=== PATIENT | female | born 1970 | race Caucasian/White ===

== ENCOUNTER 2017-10-17 21:41 | Emergency (ER) | payer OTHER ==
[~2017-10-17] VITALS: Ht 162.6 cm; Wt 111.4 kg
[2017-10-17 21:47] VITALS: TEMP 36.9; Ht 162.6 cm; Wt 111.4 kg
[2017-10-17] MEDS ORDERED: METOCLOPRAMIDE HCL INJ 5 MG/ML 2 ML VIAL IV STA (22:02)
[2017-10-17] MEDS ORDERED: DiphenhydrAMINE HCL 50 MG/ML VIAL IV STA (22:02)
[2017-10-17 22:36] LABS: URINE APPEARANCE CLEAR (CLEAR); URINE BILIRUBIN NEG (NEG); URINE COLOR YELLOW; URINE NITRITE NEG (NEG); UROBILINOGEN NEG (NEG); ZZUR CULT IF INDIC CLEAN CATCH NO
--- NOTE | 2017-10-17 22:37 | DIAGNOSTIC IMAGING REPORT ---
CHEST ONE VIEW PORTABLE CLINICAL HISTORY: Chest pain. COMPARISON STUDY: No previous studies for comparison. FINDINGS: Lung volumes are normal. No consolidation is identified and there is no evidence of pulmonary edema. Cardiomediastinal silhouette is normal. There is no pneumothorax or pleural effusion. IMPRESSION: No acute cardiopulmonary findings. Electronically signed by: Honorio Layton M.D. 10/17/2017 10:36 PM Dictated Date/Time: 10/17/2017 10:35 PM
[2017-10-17 22:38] LABS: MANUAL MICROSCOPIC REQUIRED? NO; REVIEW REQ? NO
[2017-10-17] MEDS ORDERED: EFF75 PO (22:45)
[2017-10-17] MEDS ORDERED: CZR25 PO (22:45)
[2017-10-17] MEDS ORDERED: ALBU18002 PO (22:45)
[2017-10-17] MEDS ORDERED: SYMIN/8045 INH (22:45)
[2017-10-17 22:57] LABS: POINT OF CARE TROPONIN I < 0.030 ng/ml (0-0.045)
[2017-10-17 22:57] LABS: BASO % 0.4 %; BASO ABS # 0.04 K/uL (0-0.2); COMPLETE YES; EOS % 4.2 %; IG% 0.1 %; LYMPH % 32.9 %; LYMPH ABS # 2.95 K/uL (1.2-3.4); MEAN CORPUSCULAR HEMOGLOBIN 29.3 pg (25-34); MEAN CORPUSCULAR HGB CONC 33.8 g/dl (32-36); MONO % 8.1 %; NEUT % 54.3 %; PLATELET COUNT 301 K/uL (130-400); WHITE BLOOD COUNT 8.98 K/uL (4.8-10.8)
[2017-10-17 23:09] LABS: ALT/SGPT 22 U/L (12-78); AST/SGOT 12 U/L (15-37); BLOOD UREA NITROGEN 12 mg/dl (7-18); BUN/CREATININE RATIO 16.3 (10-20); CALCIUM 9.1 mg/dl (8.5-10.1); CARBON DIOXIDE 27 mmol/L (21-32); CHLORIDE 103 mmol/L (98-107); CREATININE 0.76 mg/dl (0.60-1.20); GLUCOSE 106 mg/dl (70-99); POTASSIUM 3.8 mmol/L (3.5-5.1); SODIUM 136 mmol/L (136-145)
[2017-10-17 23:20] LABS: ALKALINE PHOSPHATASE 110 U/L (45-117)
[2017-10-17] MEDS ORDERED: LORAZEPAM 2 MG/ML 1 ML VIAL IV STA (23:50)
[2017-10-18 01:01] VITALS: BP 147/76
[2017-10-18 01:15] VITALS: PULSE 85; O2SAT 94
--- NOTE | 2017-10-18 01:51 | EMERGENCY ROOM VISIT NOTE ---
History First contact with patient: 21:52 Chief Complaint: OTHER COMPLAINT Stated Complaint: HEADACHE, LEG PAIN, DIZZY, SOB History of Present Illness The patient is a 47 year old female who presents to the Emergency Room with complaints of high blood pressure, lightheadedness, chest pain, dyspnea, leg cramping, headache for the past day. 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 Patient recently started losartan yesterday. Patient did not take blood pressure medication in the past and she did not believe she had high blood pressure. Patient slept for a few hours today and then got up and felt lightheaded and then developed all these other symptoms. She checked her blood pressure and noticed it was high. She got more concerned and came here. Patient denies fevers, cough, abdominal pain, vomiting, diarrhea, cold symptoms, recent travel, tobacco abuse. No prior heart disease. No history of blood clots. Review of Systems See HPI for pertinent positives & negatives. A total of 10 systems reviewed and were otherwise negative. Past Medical/Surgical History Hypertension, depression Social History Smoking Status: Former Smoker Smokeless Tobacco Use: No Alcohol Use: occasionally Drug Use: none Occupation Status: employed Current/Historical Medications Scheduled Budesonide/Formoterol Fumarate (Symbicort 80/4.5 Inhaler), 2 PUFFS INH BID Losartan Potassium (Losartan Potassium), 25 MG PO DAILY Venlafaxine Hcl (Effexor), 75 MG PO QAM Scheduled PRN Albuterol Sulfate (Proair Respiclick), 1 PUFF PO DAILY PRN for PRN Physical Exam Vital Signs Date Time Temp Pulse Resp B/P (MAP) Pulse Ox O2 Delivery O2 Flow Rate FiO2 10/18/17 01:15 85 23 94 10/18/17 01:01 147/76 10/18/17 01:00 84 26 93 10/18/17 00:45 84 18 95 10/18/17 00:31 164/75 10/18/17 00:30 76 18 93 Room Air 10/18/17 00:25 168/81 10/17/17 23:50 156/72 10/17/17 22:56 Room Air 10/17/17 22:56 80 10/17/17 21:47 36.9 71 18 214/96 94 Room Air Physical Exam VITALS: Vitals are noted on the nurse's note and reviewed by myself. Vital signs hypertensive GENERAL: Anxious appearing female, in no acute distress, nondiaphoretic, well- developed well-nourished. SKIN: The skin was without rashes, erythema, edema, or bruising. There is no tenting of the skin. Capillary reflex less than 2 seconds. HEAD: Normocephalic atraumatic. EARS: External auditory canals clear, tympanic membranes pearly singer without erythema or effusion bilaterally. EYES: Pupils equal round and reactive to light and accommodation. Conjunctivae without injection, sclerae without icterus. Extraocular movements intact. NOSE: Patent, turbinates without inflammation or discharge. MOUTH: Mucous membranes moist. Pharynx without erythema or exudate. Uvula midline. Airway patent. Tongue does not deviate. NECK: Supple without nuchal rigidity. No lymphadenopathy. No thyromegaly. Cervical spine is nontender. No JVD. HEART: Regular rate and rhythm without murmurs gallops or rubs. LUNGS: Clear to auscultation bilaterally without wheezes, rales or rhonchi. No dullness to percussion. No retractions or accessory muscle use. ABDOMEN: Positive bowel sounds x 4. Normal tympanic percussion. Soft, nontender, without masses or organomegaly. Rosa sign negative. No guarding or rebound tenderness. MUSCULOSKELETAL: No muscle atrophy, erythema, or edema noted. NEURO: Patient was alert and oriented to person place and time. Normal sensation to light and sharp touch. No focal neurological deficits. Medical Decision & Procedures Laboratory Results 10/17/17 22:30 Red Blood Count 4.60, Mean Corpuscular Volume 87.0, Mean Corpuscular Hemoglobin 29.3, Mean Corpuscular Hemoglobin Concent 33.8, Mean Platelet Volume 9.0, Neutrophils (%) (Auto) 54.3, Lymphocytes (%) (Auto) 32.9, Monocytes (%) (Auto) 8.1, Eosinophils (%) (Auto) 4.2, Basophils (%) (Auto) 0.4, Neutrophils # (Auto) 4.87, Lymphocytes # (Auto) 2.95, Monocytes # (Auto) 0.73, Eosinophils # (Auto) 0.38, Basophils # (Auto) 0.04 10/17/17 22:30 Test 10/17/17 22:20 10/17/17 22:30 10/17/17 22:37 10/18/17 00:37 Urine Color YELLOW Urine Appearance CLEAR (CLEAR) Urine pH 5.0 (4.5-7.5) Urine Specific [place] 1.020 (1.000-1.030) Urine Protein NEG (NEG) Urine Glucose (UA) NEG (NEG) Urine Ketones NEG (NEG) Urine Occult Blood NEG (NEG) Urine Nitrite NEG (NEG) Urine Bilirubin NEG (NEG) Urine Urobilinogen NEG (NEG) Urine Leukocyte Esterase NEG (NEG) White Blood Count 8.98 K/uL (4.8-10.8) Red Blood Count 4.60 M/uL (4.2-5.4) Hemoglobin 13.5 g/dL (12.0-16.0) Hematocrit 40.0 % (37-47) Mean Corpuscular Volume 87.0 fL (80-100) Mean Corpuscular Hemoglobin 29.3 pg (25-34) Mean Corpuscular Hemoglobin Concent 33.8 g/dl (32-36) Platelet Count 301 K/uL (130-400) Mean Platelet Volume 9.0 fL (7.4-10.4) Neutrophils (%) (Auto) 54.3 % Lymphocytes (%) (Auto) 32.9 % Monocytes (%) (Auto) 8.1 % Eosinophils (%) (Auto) 4.2 % Basophils (%) (Auto) 0.4 % Neutrophils # (Auto) 4.87 K/uL (1.4-6.5) Lymphocytes # (Auto) 2.95 K/uL (1.2-3.4) Monocytes # (Auto) 0.73 K/uL (0.11-0.59) Eosinophils # (Auto) 0.38 K/uL (0-0.5) Basophils # (Auto) 0.04 K/uL (0-0.2) RDW Standard Deviation 40.4 fL (36.4-46.3) RDW Coefficient of Variation 12.8 % (11.5-14.5) Immature Granulocyte % (Auto) 0.1 % Immature Granulocyte # (Auto) 0.01 K/uL (0.00-0.02) Anion Gap 7.0 mmol/L (3-11) Est Creatinine Clear Calc Drug Dose 109.4 ml/min Estimated GFR () 106.8 Estimated GFR (Non- 92.1 BUN/Creatinine Ratio 16.3 (10-20) Calcium Level 9.1 mg/dl (8.5-10.1) Total Bilirubin 0.3 mg/dl (0.2-1) Direct Bilirubin < 0.1 mg/dl (0-0.2) Aspartate Amino Transf (AST/SGOT) 12 U/L (15-37) Alanine Aminotransferase (ALT/SGPT) 22 U/L (12-78) Alkaline Phosphatase 110 U/L (45-117) Total Creatine Kinase 67 U/L (26-192) Troponin I < 0.015 ng/ml (0-0.045) Total Protein 7.8 gm/dl (6.4-8.2) Albumin 3.6 gm/dl (3.4-5.0) Lipase 161 U/L (73-393) Thyroid Stimulating Hormone (TSH) 1.600 uIu/ml (0.300-4.500) Bedside D-Dimer 343 ng/mlFEU (0-450) Bedside Troponin I < 0.030 ng/ml (0-0.045) Medications Administered Medications (Trade) Dose Ordered Sig/Gabrielle Route Start Time Stop Time Status Last Admin Dose Admin Metoclopramide HCl (Reglan Inj) 10 mg NOW STAT IV 10/17/17 22:02 10/17/17 22:05 DC 10/17/17 22:44 10 MG Diphenhydramine HCl (Benadryl Inj) 12.5 mg NOW STAT IV 10/17/17 22:02 10/17/17 22:06 DC 10/17/17 22:45 12.5 MG Lorazepam (Ativan Inj) 0.5 mg NOW STAT IV 10/17/17 23:50 10/17/17 23:51 DC 10/18/17 00:26 0.5 MG ED Course Prior records/ancillary studies reviewed and summarized above. Nursing notes reviewed. Additional history obtained from friend The patient's history was concerning for lightheaded, chest pain, leg cramps, high blood pressure. Differential diagnosis: Etiologies such as metabolic, anxiety, infection, hypo/hyperglycemia, electrolyte abnormalities, cardiac sources, intracerebral event, toxicologic, neurologic, as well as others were entertained. Physical examination: As above. ER treatment provided: IV Lock Reglan, Ativan, Benadryl On reassessment the patient felt better. Diagnostics interpretation by me: ECG: Normal sinus, normal intervals, no acute ST-T wave changes. Impression normal sinus rhythm interpreted by myself The labs revealed negative troponin test 2 that is greater than 2 hours apart. Euthyroid. Stable H&H Negative d-dimer with a low PERC Imaging studies: Head CT negative for intracranial abnormalities per radiology Ultrasound negative for DVT Chest x-ray with no acute consolidation, Pneumovax or free air per my interpretation Exam and history seem consistent with elevated blood pressure with anxiety with lack of sleep that most likely caused her to feel lightheaded. Patient was neurovascularly and neurologically intact. She had an extensive workup as above and was all unremarkable. She did not have acute abdomen on exam. Normal EKG. Negative for testing. She is advised to monitor her blood pressure and [facility] and [facility] for her high blood pressure. She is advised to get 8 hours of sleep tonight. She is advised to return to the ER immediately for chest pain, difficulty breathing, worsening signs or symptoms or as needed. By the evaluation outlined above emergent etiologies such as infection, electrolyte abnormalities, cardiac sources, intracerebral event, toxologic, neurologic, abnormalities blood glucose, metabolic, as well as others were deemed relatively unlikely. The pt informed about the findings as listed above. All questions were answered and pleased with the treatment. Return instructions were outlined and the patient was discharged in stable condition. Referral: The patient was referred back to primary care physician for follow-up in 2 to 3 days for a recheck of the current condition. Case reviewed with my attending Medical Decision As above Blood Pressure Screening Patient's blood pressure: Elevated blood pressure Blood pressure disposition: Referred to PCP Impression Primary Impression: High blood pressure Additional Impressions: Lightheaded Chest pain Departure Information Dispostion Home / Self-Care Condition GOOD Forms WORK / SCHOOL INSTRUCTIONS, HOME CARE DOCUMENTATION FORM, IMPORTANT VISIT INFORMATION Patient Instructions High Blood Pressure, My [employer] Additional Instructions Monitor your blood pressure. It was high today. Take your medications as directed. Recommend 8 hours of sleep a day. Rest and drink plenty of fluids as tolerated. Continue current medications. Avoid strenuous activities and anything that worsens your pain. Resume normal activities once your symptoms resolve. Return to the ER immediately for worsening or persistent chest pain, abdominal pain, vomiting, fevers, chest pains, difficulty breathing, worsening of your condition, or as needed. Follow up with your primary physician in 2-3 days for a recheck of your current condition. Problem Qualifiers Primary Impression: High blood pressure Hypertension type: unspecified Qualified Codes: I10 - Essential (primary) hypertension
--- NOTE | 2017-10-18 06:30 | DIAGNOSTIC IMAGING REPORT ---
ULTRASOUND VENOUS DOPPLER LWR EXT BILA CLINICAL HISTORY: Bilateral leg pain COMPARISON STUDY: No previous studies for comparison. FINDINGS: Real-time and color flow Doppler imaging were performed. Flow was seen within the femoral, popliteal and calf veins with no intraluminal thrombus demonstrated. The saphenous vein is patent. IMPRESSION: No evidence of lower extremity DVT. Electronically signed by: Jose Montero M.D. 10/18/2017 6:29 AM Dictated Date/Time: 10/18/2017 6:28 AM
--- NOTE | 2017-10-18 06:37 | DIAGNOSTIC IMAGING REPORT ---
HEAD WITHOUT CONTRAST (CT) CT DOSE: 537.48 mGy.cm HISTORY: Mental status change CHANEY/dizzy/HTN TECHNIQUE: Multiaxial CT images of the head were performed without the use of intravenous contrast. A dose lowering technique was utilized adhering to the principles of ALARA. Comparison: None. Findings: The paranasal sinuses and mastoid air cells are clear. The calvarium and skull base are intact. The ventricles and sulci are within normal limits. There is no mass, hematoma, midline shift, or acute infarct. Impression: No acute intracranial abnormality. The above report was generated using voice recognition software. It may contain grammatical, syntax or spelling errors. Electronically signed by: Tong Calero M.D. 10/18/2017 6:35 AM Dictated Date/Time: 10/18/2017 6:34 AM
== END 2017-10-18 01:20 | disposition home or self-care (01) ==
LOC: C.EDB 21:42
DX: I10 Essential (primary) hypertension (principal); Z87.891 Personal history of nicotine dependence; Z79.899 Other long term (current) drug therapy; F41.9 Anxiety disorder, unspecified